=== PATIENT | female | born 1940 | race Caucasian/White ===

== ENCOUNTER 2021-04-13 06:47 | Day surgery (SDC) | payer MEDICARE, SELFPAY ==
[2021-02-22 09:50] VITALS: BMI 28.0
[2021-03-13 08:58] VITALS: BMI 26.9
[2021-04-13] VITALS (8 sets, daily range): BP systolic 103–115; BP diastolic 52–70; PULSE 54–78; RESP 16–18; TEMP 36.1–36.9; O2SAT 88–95; BMI 27.3
--- NOTE | 2021-04-13 00:04 | PCM.HP.BLA ---
History and Physical Date of Admission: 04/13/21 HISTORY OF PRESENT ILLNESS 80 year old woman presents with a lesion on her right lateral nasal sidewall that had increased in size over the last several months. Recent shave biopsy on 01/24/21 was done. Pathology showed a squamous cell carcinoma in situ with positive deep margin and peripheral margin. She denies any trauma. She denies bleeding. She presents at this time for further evaluation and treatment. 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 ALLERGIES No Known Allergies MEDICATIONS methimazole 10 mg tablet 10 mg PO DAILY 02/19/21 [History Confirmed 02/22/21] multivitamin 1 tab PO DAILY 02/19/21 [History Confirmed 02/22/21] sertraline 50 mg tablet 150 mg PO DAILY tab 02/19/21 [History Confirmed 02/22/21] vit C,E,zinc,Nw-vzsjo-3-lutein-zeaxanthin 250 mg-2.5 mg-0.5 mg capsule cap PO DAILY cap 02/19/21 [History Confirmed 02/22/21] FAMILY HISTORY Arthritis SOCIAL HISTORY Smoking Status: Current every day smoker alcohol intake: never substance use type: does not use REVIEW OF SYSTEMS General - Denies fever and weight loss. Has fatigue. Eyes - Denies cataracts and glaucoma. ENT - Denies nasal congestion and sore throat. Endocrine - Denies excessive thirst and urination. Has thyroid disease. Skin - Has lesion right lateral nasal sidewall that was shave biopsied 01/24/21 and it showed squamous cell carcinoma in situ. Musculoskeletal - Denies joint pain, weakness of muscles and joints, and arthritis. Has joint stiffness and arthritis. Neuro - Denies headaches. Cardiovascular - Denies chest pain, fatigue, and shortness of breath with exertion. Psych - Denies anxiety. Has depression. Respiratory - Denies chronic cough and shortness of breath. Patient is a smoker. Gastrointestinal - Denies nausea, vomiting, and constipation. Has diarrhea. Hematologic - Denies abnormal bruising and bleeding. Genitourinary - Denies hematuria and urinary frequency. PHYSICAL EXAMINATION General - Alert and Oriented. HEENT - PERRL. EOMI. Throat is clear. On the right lateral nasal sidewall is a healing wound from a recent shave biopsy 01/24/21 that showed a squamous cell carcinoma in situ. Measures 6 mm. Has irregular borders. Lesion is nontender. No other suspicious lesions noted. Neck - Supple and nontender. No cervical adenopathy. No suspicious lesions noted. Lungs - Clear to auscultation. Heart - Regular rate and rhythm. Abdomen - Soft and nondistended. Extremities - FROM. No axillary adenopathy. Radial pulses are palpable. No suspicious lesions noted. Neuro - CN II-XII grossly intact. Psych - Normal mood and affect. ASSESSMENT 1. 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 2. Smoker. PLAN Pathology reviewed. Patient notes reviewed. She has a squamous cell carcinoma in situ right lateral nasal sidewall with positive margins. It was a shave biopsy. Recommend further excision of this squamous cell carcinoma in situ with a 5 mm margin. Will send the lesion to Pathology for analysis to rule out carcinoma at the margins. Reconstruction will be with skin grafting. Surgery will be done on an outpatient basis under local anesthesia and IV sedation. Patient was informed of the risks and complications of the procedure including alternatives to surgery. These were discussed with the patient personally. Patient voices understanding and wishes to proceed. Some of the risks and complications were included in a form from the [employer]. Encouraged patient to stop smoking as it may have deleterious effects on wound healing. We discussed the current risks associated with COVID-19. While it is understood that there is a community spread of COVID-19, the risk of madhavi COVID-19 while at [facility] ([facility]) is very low; however, the risk cannot be completely mitigated because of the community spread of the disease. We discussed in detail the risk of exposure to and/or potential harm posed by the COVID-19 virus with having a surgery/procedure at this time versus the risk of delaying the surgery/procedure. It is not possible to know either the risk of delaying the surgery or procedure or chance of getting an infection with perfect accuracy, but a joint decision was made to proceed at this time with the scheduled surgery/procedure as indicated on the consent form. Patient was notified that we will need to comply with any screening or testing [facility] wishes to perform or that surgery may be delayed for any positive results.
[2021-04-13] MEDS: Lactated Ringers 1,000 ML 100 ML IV ×2 (07:34→09:31)
--- NOTE | 2021-04-13 08:30 | NASAL_PTH ---
PATIENT: ALICIA MESSINA LOC: [facility] – [place] U#:[id number] AGE/SX: 80/F ROOM: RE04/13/[address]: Dr. Blas Beauchamp MD : 1940 BED: DIS: 04/13/2021 SPEC #: [id number] RECD: 04/13/21 12:30 STATUS: JOSÉ LUIS ANDREINA #: [id number] JANI: 04/13/21 08:[address]: Blas Beauchamp DEPT: SURGICAL PATHOLOGY RECD BY: Mateo Gomez ENTERED: 04/16/21 08:40 SP TYPE: NASAL SPEC OTHR DR: Dr. 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 Demodex folliculorum. No evidence of carcinoma. AM:wandy 04/17/2021 MICROSCOPIC DESCRIPTION Slides are reviewed. 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 The specimen consists of a round piece of calle-light brown skin measuring 1.2 x 1.1 cm and 0.1 cm in thickness. The specimen is inked as follows: 12 to 3 o?clock ? black, 3 to 6 o?clock ? blue, 6 to 9 o?clock ? green, 9 to 12 o?clock ? yellow. The specimen is serially sectioned and submitted entirely in one cassette. / SJ:wandy 04/16/21 TC:5 CPT: 17965
[2021-04-13] MEDS: Lidocaine 1% /Epi 1:100 (50ml) 50 ML VIAL (08:56)
[2021-04-13] MEDS: Mupirocin Ointment 22gm Tube 1 APPLIC (09:23)
--- NOTE | 2021-04-13 09:35 | PCM.OPRPT ---
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 2. Smoker. Post-Operative Diagnosis: Same. Surgery/Procedure Performed:: Excision 6 mm squamous cell carcinoma in situ right lateral nasal sidewall with FTSG reconstruction from right neck (2.56 cm2). Description of Surgical Findings:: 80 year old woman presents with a lesion on her right lateral nasal sidewall that had increased in size over the last several months. Recent shave biopsy on 01/24/21 was done. Pathology showed a squamous cell carcinoma in situ with positive deep margin and peripheral margin. She denies any trauma. She denies bleeding. Patient was informed of the risks and complications of the procedure including alternatives to surgery. These were discussed with the patient personally. Patient voices understanding and wishes to proceed. Some of the risks and complications were included in a form from the [employer]. Encouraged patient to stop smoking as it may have deleterious effects on wound healing. Size of skin graft right lateral nasal sidewall - 1.6 x 1.6 cm. 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 Drains: None. Estimated Blood Loss (mL): 5. Description of Procedure: Patient was taken to OR in supine position and was placed under general anesthesia. The face and neck areas were prepped and draped in the usual fashion. SCD's were placed for DVT prophylaxis. Perioperative antibiotics were given intravenously. Using xylocaine with epinephrine, the lesion right lateral nasal sidewall was infiltrated. I korey an ellipse of skin on the right neck which was also infiltrated. After waiting 5 minutes for the anesthetic to take effect, I made an elliptical incision on the right neck into the subcutaneous tissue. I removed the subcutaneous tissue from the underside of the dermis thus fashioning a full thickness skin graft. The skin graft was placed in saline. Hemostasis was obtained with electrocautery. The right neck donor site was closed in a layered fashion with 5-0 Monocryl interrupted sutures for the deep dermis and subcutaneous tissue. The skin was approximated with 5-0 Prolene simple interrupted sutures. I then excised the squamous cell carcinoma right lateral nasal sidewall with a 5 mm margin in all directions just in case the final pathology shows a focus of invasive cancer. A circular incision was made into the subcutaneous tissue. A suture was marked at 12 oclock position for pathology orientation. The lesion was sent to Pathology for analysis to rule out carcinoma at the margins. The size of the defect to be skin grafted was 1.6 x 1.6 cm or 2.56 cm2. I placed the full thickness skin graft on the nasal defect and secured the graft to the skin edges with 5-0 Chromic simple interrupted sutures. 5-0 Chromic sutures were also used for central quilting stabilization. Antibiotic ointment was applied to the skin graft followed by Xeroform gauze and a cotton ball soaked in saline. It was secured to the skin with 4-0 Nylon tie over stent suture dressing. For the donor incision right neck, antibiotic ointment was applied to the suture line followed by an Op Site dressing. Patient tolerated the procedure well and was sent to PACU in satisfactory condition. Patient will be sent home on antibiotics and pain medication. She will keep her head elevated during the initial postoperative period. Patient will followup in 4-5 days for a wound check and for removal of the skin graft dressing and for discussion of the pathology report. The donor sutures right neck will be removed the following week. Grafts/Implants Used: None. Complications None. Admit VTE Documentation VTE Present on Admission: No VTE Mechan Device Prophylaxis: SCD's VTE Pharm Prophylaxis ordered?: No Addendum Addendum: Surgery Charges CPT - 13686 ICD-10 - D04.39, F17.200 79611 D04.39, F17.200
--- NOTE | 2021-04-13 09:40 | PCM.DC ---
Discharge Instructions Diet Discharge Diet: No restrictions Activity Discharge Activity: May Not Drive, May Shower (in two days from the neck down. may wash face gently in the sink.) and - (keep head elevated. no heavy lifting.) May resume sexual activity in: 10-14 days Ice area for (Minutes): 5 (as needed for facial swelling.) Weight Bearing Status: Weight bearing as tolerated Lifting Restrictions: 10 lbs. Keep extremity elevated above heart level: - (elevate head.) Dressing / Incision Call your doctor if your incision/area has: Continuous Slow Oozing, Sudden Increased Bleeding, Increased Pain/ Swelling, Increased Redness, Foul Smelling Discharge and Swelling at the incision site Call your doctor if you observe: Fever of 101 or Higher, Coldness, Increased Pain, Shortness of breath, Chest pain, Calf discomfort and Uncontrolled pain Remove Dressing in: 2 days (neck dressing only. will remove skin graft dressing on nose in the office.) Cleanse incision/area with: - (may shower in two days from the neck down. may wash face gently in the sink.) Follow Up Care Please Follow Up With: Blas Beauchamp MD When: friday04/17/21. call [phone] for appt. Test Results: Test results from this visit will be discussed in further detail at your follow-up appointment, if applicable. Discharge Plan Admission Primary Reason for Your Visit: outpatient surgery. Attending Provider: Blas Beauchamp Primary Care Provider: Rufino Cherry Discharge Orders/Prescriptions Prescriptions: New clindamycin HCl [Cleocin HCl] 300 mg capsule 300 mg PO TID Qty: 15 RF: 0 oxycodone-acetaminophen [Percocet] 5-325 mg tablet 1 tab PO Q6H PRN (Reason: pain (scale score 7-10)) 5 Days Qty: 20 RF: 0 Continued sertraline [Zoloft] 50 mg tablet 150 mg PO QHS RF: 0 multivitamin [Daily Multi-Vitamin] Tablet 1 tab PO DAILY PRN PRN (Reason: supplements) RF: 0 methimazole 5 mg tablet 2.5 mg PO DAILY RF: 0 Referrals / Follow Up: Rufino Cherry MD [Primary Care Provider] - Disposition Disposition (needs filled in before D/C Order can be placed): Home, Self Care
== END 2021-04-13 12:35 | disposition home or self-care (01) ==
LOC: SDC 06:47 → AC 06:54
PROVIDERS: PCP Family Medicine; Referring Provider Surgery; Visit Provider Surgery
PROC: (CPT 11641; principal; 2021-04-13 08:15)
DX: D04.39 Carcinoma in situ of skin of other parts of face (principal); F32.9 Major depressive disorder, single episode, unspecified; I35.0 Nonrheumatic aortic (valve) stenosis; K21.9 Gastro-esophageal reflux disease without esophagitis; F41.9 Anxiety disorder, unspecified; E78.00 Pure hypercholesterolemia, unspecified; E05.90 Thyrotoxicosis, unspecified without thyrotoxic crisis or storm; M19.90 Unspecified osteoarthritis, unspecified site; G56.00 Carpal tunnel syndrome, unspecified upper limb; Z87.19 Personal history of other diseases of the digestive system; Z87.440 Personal history of urinary (tract) infections; Z79.899 Other long term (current) drug therapy; F17.200 Nicotine dependence, unspecified, uncomplicated
CPT/HCPCS: 00300; 11641; 15260; 88305; J7120; J2405

== ENCOUNTER → 2022-01-22 | Outpatient (CLI) | payer MEDICARE, SELFPAY ==
--- NOTE | 2022-01-22 16:03 | US_ITS ---
EXAM: US RETROPERITONEAL LIMITED, RENAL CLINICAL INDICATION: RECURRENT UTI TECHNIQUE: Limited grayscale and color Doppler sonographic evaluation of the retroperitoneum was performed. This report was created using [employer] technology. COMPARISON: None. FINDINGS: Hypoechoic mass located superior/medial to the right kidney is well-circumscribed and measures up to 2.9 cm. Consider adenopathy or other abdominal mass. Innumerable small hyperechoic masslike structures throughout the spleen. There is nonspecific although metastasis not entirely excluded. Suggest CT for further investigation. Simple right renal cyst measuring 1.9 cm. Kidneys are otherwise unremarkable. Bladder is incompletely distended with no wall thickening. US/Kidney and Bladder IMPRESSION: 1. Hypoechoic mass located superior/medial to the right kidney is well-circumscribed and measures up to 2.9 cm. Consider adenopathy or other abdominal mass with adrenal origin tumor not excluded. Recommend nonemergent follow-up CT abdomen and pelvis for further investigation. 2. Innumerable small hyperechoic masslike structures throughout the spleen. There is nonspecific although metastasis not entirely excluded. Suggest CT for further investigation. Electronically Signed: Tripp Sosa MD at 17:58 EDT ,
== END | disposition home or self-care (01) ==
LOC: US 16:01
PROVIDERS: PCP Family Medicine; Referring Provider Urology; Visit Provider Urology
DX: N39.0 Urinary tract infection, site not specified (principal)
CPT/HCPCS: 76770

== ENCOUNTER 2022-03-07 06:37 | Day surgery (SDC) | payer MEDICARE, SELFPAY ==
[2022-03-07] VITALS (9 sets, daily range): BP systolic 87–131; BP diastolic 52–69; PULSE 57–75; RESP 15–18; TEMP 36.3–36.9; O2SAT 92–97; BMI 26.0
[2022-03-07] MEDS: Lactated Ringers 1,000 ML 15 ML IV (07:05)
[2022-03-07 07:28] LABS: Hematocrit 43.5 % (37-47); Hemoglobin 14.5 g/dL (12.0-15.0); Mean Corp Hgb Conc 33.3 g/dL (32-36); Mean Corpuscular Hgb 31.4 pg (27.0-32.0); Mean Corpuscular Volume 94.2 fL (81-99); Mean Platelet Vol. 10.9 fl (6.2-12.0); Platelet Count 219 K/mm3 (150-450); RBC Distribution Width CV 14.7 % (11.6-14.6); RBC Distribution Width SD 50.6 fl (35.1-43.9); Red Blood Count 4.62 M/mm3 (4.2-5.4); White Blood Count 7.7 K/mm3 (4.4-11.0)
--- NOTE | 2022-03-07 07:55 | DCINST_ITS ---
Discharge Instructions Diet Discharge Diet: No restrictions Activity Discharge Activity: Return to Normal Activity Dressing / Incision Call your doctor if you observe: Fever of 101 or Higher, Inability to urinate and Inability to have a bowel movement Follow Up Care Please Follow Up With: Daisy Krishna MD When: 1 week, call the office for appointment Test Results: Test results from this visit will be discussed in further detail at your follow- up appointment, if applicable. Discharge Plan Admission Attending Provider: Daisy Krishna Primary Care Provider: Rufino Cherry Discharge Orders/Prescriptions Prescriptions: New oxycodone-acetaminophen [Percocet] 5-325 mg tablet 1 tab PO Q8H PRN (Reason: pain) 2 Days Qty: 6 0RF phenazopyridine [phenazopyridine] 100 mg tablet 100 mg PO TID Qty: 30 0RF Continued sertraline [Zoloft] 50 mg tablet 200 mg PO QHS multivitamin [Daily Multi-Vitamin] Tablet 1 tab PO DAILY PRN PRN (Reason: supplements) methimazole 5 mg tablet 2.5 mg PO DAILY Label Comments: TAKE 1 TABLET BY MOUTH ONCE DAILY Referrals / Follow Up: Rufino Cherry MD [Primary Care Provider] - Disposition Disposition (needs filled in before D/C Order can be placed): Home, Self Care
[2022-03-07] MEDS: Cefazolin 2 GM in 0.9% Normal Saline 100 ML IV (08:02)
[2022-03-07 08:15] LABS: Thyroid Stim Hormone (TSH) 0.73 uIU/mL (0.358-3.74)
--- NOTE | 2022-03-07 08:20 | BLA_PTH ---
PATIENT: ALICIA MESSINA [place] [facility] [place][id number] AGE/SX: 81/F ROOM: RE03/07/[address]: Dr. Daisy Krishna MD : 1940 BED: DIS: 03/07/2022 SPEC #: [id number] RECD: 03/07/22 11:08 STATUS: JOSÉ LUIS HDZ #: [id number] JANI: 03/07/22 08:[address]: Daisy Krishna DEPT: SURGICAL PATHOLOGY RECD BY: Janet Castillo ENTERED: 03/07/22 12:00 SP TYPE: BLADDER BX OTHR DR: Dr. 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 Negative for malignancy. See comment. RENEE:wandy 03/08/2022 COMMENT Detrusor muscle is not present in the specimen. Correlation with clinical, cystoscopic findings and appropriate follow up are necessary. MICROSCOPIC DESCRIPTION Slides are reviewed. GROSS DESCRIPTION Received in fixative is one container labeled with the patient's name and designated bladder tumor. The specimen consists of three irregular fragments of calle soft tissue that in aggregate measure 0.6 x 0.1 x 0.1 cm. The specimen is totally submitted in one cassette. / RENEE:wandy 03/07/2022 TC:3 CPT: 39192
--- NOTE | 2022-03-07 08:40 | OP.PCM_ITS ---
Report of Operation Date of Procedure: 03/07/22 Pre-Operative Diagnosis: Bladder mass, small Post-Operative Diagnosis: Same Surgery/Procedure Performed:: cystoscopy, bladder biopsy and fulguration Surgeon: Daisy Krishna Type of Anesthesia: MAC Specimen's removed: Bladder biopsy x3 Description of Procedure: The patient is an 81-year-old female who was evaluated in the office with a cystoscopy and a 5 mm suspicious erythematous lesion was identified in the left posterior wall approximately 5 mm in size. She now presents for biopsy and definitive management under anesthesia. Informed consent was obtained. The patient was taken to the operating room and placed on the operating room table. Anesthesia monitored the head, neck, airway, IV access and vital signs t hroughout the case. Once, the patient was placed into dorsal lithotomy position was prepped and draped in usual sterile fashion. The cystoscope was inserted through the urethra under direct visualization into the urinary bladder. The lesion was easily identified in the posterior bladder wall. No other areas of erythema or abnormality were identified. The ureteral orifices were far away from the lesion and were normal in appearance. At this time biopsy forceps were used to remove the lesion in a total of 3 biopsies. The area was then fulgurated for hemostatic control and tissue treatment. The patient's bladder was then emptied and the cystoscope was removed. She was awakened and taken to the recovery room in good condition. There were no complications during this procedure. Complications none Admit VTE Documentation VTE Present on Admission: Yes VTE Mechan Device Prophylaxis: SCD's VTE Pharm Prophylaxis ordered?: No Reason prophylaxis not ordered:: Treatment Not Indicated
== END 2022-03-07 09:40 | disposition home or self-care (01) ==
LOC: SDC 06:40 → AC 06:41
PROVIDERS: Anesthesiology; PCP Family Medicine; Referring Provider Urology; Visit Provider Urology
PROC: 0TBB8ZX Excision of Bladder, Via Natural or Artificial Opening Endoscopic, Diagnostic (ICD-10-PCS; CPT 52224; principal; 2022-03-07 08:10)
DX: D30.3 Benign neoplasm of bladder (principal); N39.46 Mixed incontinence; F17.200 Nicotine dependence, unspecified, uncomplicated; Z87.440 Personal history of urinary (tract) infections; Z87.19 Personal history of other diseases of the digestive system; Z86.010 Personal history of colon polyps; K21.9 Gastro-esophageal reflux disease without esophagitis; F32.A Depression, unspecified; E78.00 Pure hypercholesterolemia, unspecified; E05.00 Thyrotoxicosis with diffuse goiter without thyrotoxic crisis or storm; M19.90 Unspecified osteoarthritis, unspecified site; Z79.899 Other long term (current) drug therapy; I35.0 Nonrheumatic aortic (valve) stenosis
CPT/HCPCS: 52224; 00910; 84443; 85027; 88305; J7120; J2405